=== PATIENT | male | born 1960 | race Caucasian/White ===

== ENCOUNTER 2019-05-04 21:15 | Emergency (ER) | payer BC, SELFPAY ==
--- NOTE | ~2019-05-04 | CT_ITS ---
EXAMINATION: CT abdomen pelvis w con DATE: 05/04/2019 22:33 INDICATION: Diverticulitis. TECHNIQUE: Computed tomography (CT) of the abdomen and pelvis was performed with 100 mL Omnipaque 350 intravenous contrast. Automated exposure control and iterative reconstruction technique were employe d. The dose-length product was 1309.41 mGy-cm. COMPARISON: None. FINDINGS: The visualized portions of the lung bases demonstrated mild atelectasis. No pleural effusio n. The heart size is normal. There are coronary artery calcifications. No pericardial effusion. The l iver and spleen are normal. There are gallstones in the gallbladder, which is normal in size. The morin creas, adrenal glands, and right kidney are normal. There is mild left hydronephrosis. There is a 9 m m stone in proximal left ureter. There is diverticulosis of the colon without evidence of diverticuli tis. The appendix is normal. There are no dilated loops of bowel. There are no pathologically enlarge d lymph nodes. There is no free intraperitoneal fluid. There is severe lower lumbar spondylosis. IMPRESSION: 1. 9 mm stone in proximal left ureter with mild left hydronephrosis. Reviewed, dictated and finalized at location A.
[2019-05-04 21:18] VITALS: BP 190/121; PULSE 94; RESP 100; TEMP 36.8; O2SAT 100
--- NOTE | 2019-05-04 21:22 | ED.ABDPAIN ---
HPI - Abdominal Pain General Chief Complaint: Abdominal Pain Stated Complaint: LLQ abd pain Time Seen by Provider: 05/04/19 21:20 Source: patient and RN notes reviewed Mode of arrival: ambulatory Limitations: no limitations History of Present Illness HPI narrative: A 59 y/o male presents to the ED with constant LLQ ABD pain beginning roughly 1 hour ago. He denies any N/V/D, constipation, or fevers. MD elicited complaint: abdominal pain Pertinent past history: none Onset (ago): hour(s) (1) Pain Consistency: constant Location: LLQ Associated symptoms: denies other symptoms Related Data Home Medications Medication Instructions Recorded Confirmed hydrochlorothiazide 05/04/19 metoprolol succinate PO 05/04/19 omeprazole 05/04/19 Allergies Allergy/AdvReac Type Severity Reaction Status Date / Time No Known Allergies Allergy Unverified 08/14/14 20:57 Review of Systems Review of Systems: All systems reviewed & are unremarkable except as noted in HPI and below Constitutional: Constitutional: Denies fever(s) Gastrointestinal: Gastrointestinal: Reports abdominal pain (LLQ), Denies constipation, Denies diarrhea, Denies nausea and Denies vomiting PMFSH Past Medical History Medical History (Updated 05/04/19 @ 23:05 by Kenn Bailey MD) GERD (gastroesophageal reflux disease) H/O: HTN (hypertension) Hypercholesteremia Surgical History Surgical History (Updated 05/04/19 @ 21:41 by Samy Ortiz) Surgical history unknown Social History Social History (Updated 05/04/19 @ 21:41 by Samy Ortiz) Smoking status: Former smoker Tobacco type: cigarettes Gender identity (if verbalized by the patient): Male Exam Narrative: Exam Narrative: General appearance: Well-developed, well-nourished Skin: Normal color Head: Normocephalic, nontraumatic Eyes: Clear conjunctiva ENT: Oropharynx normal, ears normal, nose normal Neck: Supple, nontender Chest and respiratory: Airway patent, no respiratory distress, no accessory muscle use Heart: Regular rate/rhythm Abdomen: Soft, slight tenderness left lower quadrant, no guarding or rebound r, no organomegaly, quiet bowel sounds Vascular: Normal peripheral pulses, normal capillary refill. Musculoskeletal: Normal range of motion, nontender back Neurologic: Alert and oriented ?3, [employer] is normal as tested, no gross motor deficit Course Course Emergency Course: Improving Vital Signs Vital signs: Vital Signs Temperature 36.8 C 05/04/19 21:18 Pulse Rate 94 05/04/19 21:18 Respiratory Rate 100 H 05/04/19 21:18 Blood Pressure 190/121 H 05/04/19 21:18 Pulse Oximetry 100 05/04/19 21:18 Temperature 36.8 C 05/04/19 21:18 Pulse Rate 94 05/04/19 21:18 Respiratory Rate 100 H 05/04/19 21:18 Blood Pressure 190/121 H 05/04/19 21:18 Pulse Oximetry 100 05/04/19 21:18 MDM - Abdominal Pain Differential Diagnosis Differential diagnosis: Likely abdominal pain, calculus of kidney, constipation, diverticulitis and other (Ischemic colitis) Lab Data Result diagrams: 05/04/19 21:52 05/04/19 21:52 Labs: Lab Results 05/04/19 05/04/19 05/04/19 Range/Units 21:52 21:52 21:52 WBC 11.5 H (4.5-10.0) K/mm3 RBC 4.08 L (4.6-6.20) M/mm3 Hgb 13.0 L (14.0-18.0) g/dL Hct 38.7 L (42.0-52.0) % MCV 94.9 (80-100) fl MCH 31.9 (26-34) pg MCHC 33.6 (32-36) g/dl RDW 13.4 (11.5-14.5) % Plt Count 267 (150-375) k/mm3 MPV 10.7 H (7.4-10.4) fl Immature Gran % (Auto) 0.4 (0-0.5) % Neut % (Auto) 71.1 (45.5-73.1) % Lymph % (Auto) 17.5 L (18.3-44.2) % [place] % (Auto) 8.4 (2.6-8.5) % Eos % (Auto) 2.1 (
[2019-05-04 21:59] LABS: Basophils Absolute Auto 0.1 K/mm3 (0.0-0.1); Basophils Percent Auto 0.5 % (0.2-1.2); Eosinophils Absolute Auto 0.2 K/mm3 (0-0.3); Eosinophils Percent Auto 2.1 % (0-4.4); Hematocrit 38.7 % (42.0-52.0); Immature Granulocyte Absolute 0.05 K/mm3 (0.00-0.031); Immature Granulocyte Percent A 0.4 % (0-0.5); Lymphocytes Absolute Auto 2.01 K/mm3 (0.9-3.2); Lymphocytes Percent Auto 17.5 % (18.3-44.2); Mean Corpuscular HGB Conc 33.6 g/dl (32-36); Mean Corpuscular Hemoglobin 31.9 pg (26-34); Mean Corpuscular Volume 94.9 fl (80-100); Mean Platelet Volume 10.7 fl (7.4-10.4); Monocytes Percent Auto 8.4 % (2.6-8.5); Neutrophils Absolute Auto 8.2 K/mm3 (1.3-6.7); Neutrophils Percent Auto 71.1 % (45.5-73.1); Platelet Count Result 267 k/mm3 (150-375); Red Blood Count 4.08 M/mm3 (4.6-6.20); Red Cell Distribution Width 13.4 % (11.5-14.5); White Blood Count 11.5 K/mm3 (4.5-10.0)
[2019-05-04] MEDS: ONDANSETRON INJ 4 MG/2 ML VIAL IV PUSH (22:01)
[2019-05-04] MEDS: SODIUM CHLORIDE 0.9% IV 1,000 ML 999 ML IV CONT (22:01)
[2019-05-04] MEDS: HYDROMORPHONE HCL 1 MG/ML INJ 0.5 MG IV PUSH (22:01)
[2019-05-04 22:10] LABS: Lactic Acid Reflex 2.4 mmol/L (0.7-2.1)
[2019-05-04 22:11] LABS: Alanine Aminotransferase 26 U/L (4-50); Albumin Level 4.4 g/dL (3.5-5.1); Alkaline Phosphatase 69 U/L (38-126); Aspartate Amino Transferase 42 U/L (17-59); Bilirubin,Total 0.7 mg/dL (0.2-1.3); Blood Urea Nitrogen 17 mg/dL (9-20); Calcium 9.1 mg/dL (8.4-10.2); Carbon Dioxide 25 mmol/L (22-30); Chloride 106 mmol/L (98-107); Estimated CRCL calculation 65 ml/min; Estimated Glomerular Filt Rate 52; Glucose 131 mg/dL (75-110); Potassium 4.2 mmol/L (3.4-5.0); Sodium 139 mmol/L (137-145)
[2019-05-04 22:21] LABS: Add Urine Microscopic? YES; Appearance Urine Clear (Clear); Bilirubin Urine Negative (Negative); Blood Urine 2+ (Negative); Color Urine Yellow (Yellow); Glucose Urine UA Negative (Negative); Ketones Urine Negative (Negative); Leukocyte Esterase Ur Negative LEU/UL (Negative); Mucus Urine Rare /lpf; Nitrate Urine Negative (Negative); Protein Urine Negative (Negative); RBC Urine >75 /hpf (0-2); Specific Grav Ur 1.017 (1.001-1.035); Urobilinogen Urine Negative mg/dL (<2.0); WBC Urine 0-3 /hpf
--- NOTE | 2019-05-04 22:26 | PC.NURSE ---
Patient to radiology
[2019-05-04 22:31] VITALS: TEMP 36.8
[2019-05-04 23:00] VITALS: BP 176/130; PULSE 81; RESP 14; O2SAT 99
[2019-05-04] MEDS: KETOROLAC 30 MG/ML VIAL (*BKC) IV PUSH (23:14)
--- NOTE | 2019-05-04 23:20 | PC.NURSE ---
Per EDP Lynn, patient to be discharged in approximately 1 hour to allow Dilaudid to subside.
[2019-05-04 23:44] VITALS: TEMP 36.8
[2019-05-05 00:14] VITALS: BP 171/102; PULSE 75; RESP 14; TEMP 36.7; O2SAT 100
[2019-05-05 00:56] LABS: Reflex Lactic Acid Yes or No Add Lactic
== END 2019-05-05 00:20 | disposition home or self-care (01) ==
PROVIDERS: Emergency Provider Emergency Medicine; PCP Family Medicine
DX: N13.2 Hydronephrosis with renal and ureteral calculous obstruction (principal); K21.9 Gastro-esophageal reflux disease without esophagitis; E78.00 Pure hypercholesterolemia, unspecified; Z87.891 Personal history of nicotine dependence
CPT/HCPCS: 36415; 74177; 80053; 81001; 83605; 85025; 96360; 96374; 96375; 99284; J1170; J1885; J2405; J7030; Q9967

== ENCOUNTER 2020-06-17 20:43 | Emergency (ER) | payer BC, SELFPAY ==
--- NOTE | ~2020-06-17 | XR_ITS ---
XR chest 2V 06/17/2020 21:48 Indication: Shortness of breath. Hypertension. COPD. Procedure: PA and lateral views of the chest Comparison: No prior studies for comparison. Findings: Heart size normal. No focal air space disease, pulmonary edema, pleural effusion or suspect ed pneumothorax. No acute osseous abnormality. Impression: 1: No acute cardiopulmonary disease. Reviewed, dictated and finalized at location A. Impression: 1: No acute cardiopulmonary disease.
[2020-06-17 20:40] VITALS: PULSE 82; RESP 15; TEMP 36.6; O2SAT 99
--- NOTE | 2020-06-17 20:59 | ECG_ITS ---
Measurements Intervals [place] Rate: 82 P: 67 PA: 157 QRS: 50 QRSD: 95 T: 85 QT: 306 QTc: 358 Interpretive Statements SINUS RHYTHM NONSPECIFIC T-WAVE ABNORMALITY- ANT/INF LEADS BASELINE ARTIFACT- I, II, III, AVR, AVL, V1-V2 BORDERLINE ECG Electronically Signed On 06-18-2020 7:53:11 CDT by Eric Larry D.O.
--- NOTE | 2020-06-17 21:00 | ED.SOB ---
HPI - SOB/Dyspnea General Chief Complaint: Shortness of Breath/Dyspnea Stated Complaint: cp, sob Time Seen by Provider: 06/17/20 20:46 Source: patient and RN notes reviewed Mode of arrival: EMS Limitations: no limitations History of Present Illness HPI Narrative: This is a 60 year old male with history of COPD who presents for evaluation of shortness of breath. He states he was walking out of bathroom when he developed sudden onset of shortness of breath. He states he has had similar symptoms in the past. He denies worsening cough or chest pain with this episode. He feels better now. He does states he has been having intermittent right chest pain with coughing for 1 week. He thinks it may just be a pulled muscle. He denies fever, chills, nausea, vomiting, leg swelling or history of DVT. He did not have his rescue inhaler. MD elicited complaint: shortness of breath Related Data Home Medications Medication Instructions Recorded Confirmed hydrochlorothiazide 05/04/19 metoprolol succinate PO 05/04/19 omeprazole 05/04/19 Allergies Allergy/AdvReac Type Severity Reaction Status Date / Time No Known Allergies Allergy Unverified 08/14/14 20:57 Review of Systems Review of Systems: All systems reviewed & are unremarkable except as noted in HPI and below PMFSH Past Medical History Medical History (Updated 06/18/20 @ 02:12 by Fernanda Jacobson MD) COPD (chronic obstructive pulmonary disease) GERD (gastroesophageal reflux disease) H/O: HTN (hypertension) Hypercholesteremia Surgical History Surgical History (Updated 05/04/19 @ 21:41 by Samy Oritz) Surgical history unknown Social History Social History (Updated 05/04/19 @ 21:41 by Samy Ortiz) Smoking status: Former smoker Tobacco type: cigarettes Gender identity (if verbalized by the patient): Male Exam Const: General: no acute distress and alert Orientation/consciousness: patient oriented x3 Eyes: EOM: EOMs intact bilaterally Resp: Effort & Inspection: normal respiratory effort and no retractions Auscultation: clear to auscultation bilaterally Other: talking in complete full sentences Cardio: Rate: regular rate Rhythm: regular rhythm Heart sounds: no murmurs GI: GI Palp: Yes Soft to palpation, No Tenderness to palpation present (GI) and No Guarding due to palpation present (GI) Auscultation: normal bowel sounds Skin: General skin exam: normal color Rashes: no rashes Neuro: General: patient oriented x3, moves all extremities and CN's II-XI intact bilaterally Extrem: General: normal to inspection Psych: Mental Status: mental status grossly normal Affect: normal affect Course Reevaluation(s) Reevaluation #1: Patient states he feels better. He reports history of hypokalema but he is out of his potassium pills. I discussed that he will need to talk to his PCP about possible discontinuing his HCTZ. Date: 06/18/20 Time: 02:09 Vital Signs Vital signs: Vital Signs Temperature 97.8 F 06/17/20 20:40 Pulse Rate 82 06/17/20 20:40 Respiratory Rate 15 06/17/20 20:40 Pulse Oximetry 99 06/17/20 20:40 Temperature 97.8 F 06/17/20 20:40 Pulse Rate 77 06/18/20 02:30 Respiratory Rate 16 06/18/20 02:30 Blood Pressure 121/80 06/18/20 02:30 Pulse Oximetry 100 06/18/20 02:30 MDM - SOB/Dyspnea Lab Data Attestation: I reviewed the patient's lab results. Result diagrams: 06/17/20 21:12 06/18/20 01:47 Labs: Lab Results 06/17/20 06/17/20 06/17/20 Range/Units 21:12 21:12 21:12 WBC 7.3 (4.5-10.0) K/mm3 RBC 3.50 L (4.6-6.20) M/mm3 Hgb 11.8 L (14.0-18.0) g/dL Hct 32.3 L (42.0-52.0) % MCV 92.3 (80-100) fl MCH 33.7 (26-34) pg MCHC 36.5 H (32-36) g/dl RDW 13.9 (11.5-14.5) % Plt Count 250 (150-375) k/mm3 MPV 9.7 (7.4-10.4) fl Immature Gran % (Auto) 1.0 H (0-0.5) % Neut % (Auto) 48.2 (45.5-73.1) % Lymph % (Auto
[2020-06-17 21:28] LABS: Basophils Absolute Auto 0.1 K/mm3 (0.0-0.1); Basophils Percent Auto 0.7 % (0.2-1.2); Eosinophils Absolute Auto 0.2 K/mm3 (0-0.3); Eosinophils Percent Auto 3.3 % (0-4.4); Hematocrit 32.3 % (42.0-52.0); Hemoglobin 11.8 g/dL (14.0-18.0); Immature Granulocyte Absolute 0.07 K/mm3 (0.00-0.031); Lymphocytes Absolute Auto 2.72 K/mm3 (0.9-3.2); Lymphocytes Percent Auto 37.2 % (18.3-44.2); Mean Corpuscular HGB Conc 36.5 g/dl (32-36); Mean Corpuscular Hemoglobin 33.7 pg (26-34); Mean Corpuscular Volume 92.3 fl (80-100); Mean Platelet Volume 9.7 fl (7.4-10.4); Monocytes Absolute Auto 0.7 K/mm3 (0.1-0.6); Monocytes Percent Auto 9.6 % (2.6-8.5); Neutrophils Absolute Auto 3.5 K/mm3 (1.3-6.7); Neutrophils Percent Auto 48.2 % (45.5-73.1); Platelet Count Result 250 k/mm3 (150-375); Red Cell Distribution Width 13.9 % (11.5-14.5); White Blood Count 7.3 K/mm3 (4.5-10.0)
[2020-06-17 21:37] LABS: Prothrombin Time 13.9 Seconds (11.1-14.7)
[2020-06-17 21:38] LABS: Partial Thromboplastin Time 28.6 SECONDS (22.3-36.8)
[2020-06-17 21:43] LABS: Alanine Aminotransferase 15 U/L (4-50); Albumin Level 3.9 g/dL (3.5-5.1); Alkaline Phosphatase 58 U/L (38-126); Anion Gap 9 mmol/L (8-16); Aspartate Amino Transferase 29 U/L (17-59); Bilirubin,Total 0.4 mg/dL (0.2-1.3); Blood Urea Nitrogen 27 mg/dL (9-20); Calcium 9.5 mg/dL (8.4-10.2); Carbon Dioxide 24 mmol/L (22-30); Chloride 106 mmol/L (98-107); D Dimer 0.27 ug/mL (<0.48); Estimated CRCL calculation 56 ml/min; Estimated Glomerular Filt Rate 44; Glucose 171 mg/dL (75-110); Potassium 2.7 mmol/L (3.4-5.0); Sodium 139 mmol/L (137-145)
[2020-06-17 21:52] LABS: NT Pro B Type Natriuretic Pept 237 pg/mL (5-100); Troponin I 0.018 ng/mL (0.000-0.034)
[2020-06-17] MEDS: POTASSIUM CHLORIDE 20 MEQ TABLET 40 MEQ PO (21:59)
[2020-06-17] MEDS: LACTATED RINGERS 1,000 ML 999 ML IV CONT ×2 (22:00→23:20)
[2020-06-17 22:07] VITALS: BP 115/61; PULSE 91; RESP 17; O2SAT 100
[2020-06-17 23:23] VITALS: BP 121/78; PULSE 80; RESP 20; O2SAT 100
[2020-06-17 23:29] LABS: HCO3 ABG 23.4 mEq/l (22.0-26.0); PO2 ABG 89.2 mmHg (80.0-100.0); pH ABG 7.455 (7.350-7.450)
[2020-06-17 23:30] LABS: Alveolar/Arterial O2 Gradient 19.8 mmHg; Fractional Inspired Oxygen 21 %; Oxygen Content ABG 16.9 %vol (16.0-22.0); Oxygen Saturation ABG 97.2 % (95.0-100.0); Total Hemoglobin 12.5 g/dL (12.0-18.0)
[2020-06-17 23:31] LABS: Device ROOM AIR; Modified Allen's Test Pass; Site Drawn RIGHT RADIAL
[2020-06-18 02:02] LABS: Potassium 3.3 mmol/L (3.4-5.0)
[2020-06-18 02:30] VITALS: BP 121/80; PULSE 77; RESP 16; O2SAT 100
== END 2020-06-18 02:30 | disposition home or self-care (01) ==
PROVIDERS: Emergency Provider General Practice; PCP Family Medicine
DX: N17.9 Acute kidney failure, unspecified (principal); E87.6 Hypokalemia; J44.9 Chronic obstructive pulmonary disease, unspecified; K21.9 Gastro-esophageal reflux disease without esophagitis; I10 Essential (primary) hypertension; E78.00 Pure hypercholesterolemia, unspecified; R94.31 Abnormal electrocardiogram [ECG] [EKG]
CPT/HCPCS: 36415; 36600; 71046; 80053; 82805; 83880; 84132; 84484; 85025; 85380; 85610; 85730; 93005; 96361; 96365; 96366; 99284; A9270; J3480; J7120

== ENCOUNTER 2020-12-19 03:08 | Day surgery (SDC) | payer BC, SELFPAY ==
[2020-12-15 10:34] VITALS: BMI 29.2
--- NOTE | 2020-12-15 10:51 | PC.NURSE ---
Report to the Outpatient Waiting Room, entrance under the green pavilion located off [facility], at time 0930 on date 12/19/20. OR Time: 1130 - You and your visitor will be asked a series of questions to screen for COVID 19 for your protection. - A mask is required within the hospital. - Only one visitor is allowed at this time. Patient visitors will be guided where to wait when not with patient. Preoperative COVID Testing Requirements: No COVID Test needed if: (proof is required; if not received patient will have Rapid Test prior to entry) - Patient has received COVID Vaccine at least 14 days prior to procedure date or - Patient has positive COVID test result within last 90 days of surgery date. COVID Test needed if above criteria is not met If not COVID vaccinated a COVID test must be conducted within 72 hours of surgery and patient is asked to isolate self from time of testing until procedure. You will go to the [facility] for your COVID testing. The [facility] site is located at the corner of [address] [facility]. You will only be called if COVID results are positive and your surgeon may reschedule your elective surgery date. Patients may have clear liquids (water, carbonated beverages, clear teas, apple juice) until 3 hours prior to surgery with a maximum of 20 ounces. - No food from midnight until time of surgery - Infants may have breast milk until 4 hours before surgery, infant formula 6 hours prior to surgery. - Children will be allowed to drink immediately following surgery. If applicable, please bring a bottle or sippy cup to assist with drinking. Juice, water, soda, and popsicles are readily available. For infants on formula, please bring formula the day of surgery. Pacifiers are allowed. Take the following medications with a SIP of water the morning of surgery: METOPROLOL Medications to discontinue per physician: VITAMINS/SUPPLEMENTS Date to take last dose: 3 DAYS PRE-OP Please no make-up, nail algerian, hairspray, perfume, deodorant, or body powder the day of surgery. No jewelry (including any body piercings) or valuables the day of surgery, leave them at home. Please take a shower or bath the night before, or the morning of, surgery with an antibacterial soap. Wear comfortable, loose fitting clothing. Children are encouraged to wear pajamas. - Jewelry must be removed prior to entering the operating room. Rings and piercings that are not removed may be cut off. - The hospital will not accept responsibility for valuables. - Please leave all valuables, including medications, at home the day of surgery. If you are going home after surgery, a licensed pick up truck driver must drive you home. - NO public transportation without another adult. - We recommend that an adult stay with you for 24 hours following discharge. - We also recommend that you do not drive, make important decision, drink alcoholic beverages, or take any drugs that were not prescribed by your health care provider for at least 24 hours after your discharge time. For Pediatric surgeries, we recommend two adults accompany the child home (only one inside the building at this time). Follow any additional instructions given to you from your surgeon. Telephone instructions given to RIDDHI MCCARTNEY and asked if any additional questions and then verbalized understanding. Patient advised to call surgeon office or pre surgery nurse liaison [phone] if any additional questions.
[2020-12-19] VITALS (9 sets, daily range): BP systolic 132–158; BP diastolic 88–101; PULSE 67–78; RESP 12–18; TEMP 36.1–36.4; O2SAT 100
[2020-12-19] MEDS: LACTATED RINGERS 1,000 ML 30 ML IV CONT ×2 (09:19→11:41)
[2020-12-19 09:37] LABS: Anion Gap 12 mmol/L (8-16); Blood Urea Nitrogen 17 mg/dL (9-20); Calcium 9.2 mg/dL (8.4-10.2); Carbon Dioxide 20 mmol/L (22-30); Chloride 108 mmol/L (98-107); Estimated CRCL calculation 70 ml/min; Estimated Glomerular Filt Rate > 60; Glucose 154 mg/dL (65-110); Potassium 3.5 mmol/L (3.4-5.0); Sodium 140 mmol/L (137-145)
[2020-12-19] MEDS: ACETAMINOPHEN 500 MG TABLET 1000 MG PO (09:39)
--- NOTE | 2020-12-19 09:40 | WPDANESEPPF ---
Anes - Initial Pre Proc Eval Procedure: Operation Date: 12/19/20 11:30 Proposed Procedures p Cystoscopy - Kobe Santamaria MD s Holmium Laser Lithotripsy Of Bladder Stone - Kobe Santamaria MD Date/Time: 12/19/20 09:40 Surgeon: Kobe Santamaria MD Pre Op Diagnosis: Bladder Stone Patient Data Age: 60 Gender: M Height: 1.83 m Weight: 98.8 kg Last Vital Signs Temp 36.1 C L 12/19/20 08:48 Pulse 74 12/19/20 08:48 Resp 18 12/19/20 08:48 BP 150/100 H 12/19/20 08:48 Pulse Ox 100 12/19/20 08:48 Allergies Allergy/AdvReac Type Severity Reaction Status Date / Time No Known Allergies Allergy Unverified 12/19/20 09:02 Home Medications Medication Instructions Recorded Confirmed Type metoprolol succinate 100 mg PO DAILY 05/04/19 12/19/20 History omeprazole 40 mg PO DAILY 05/04/19 12/19/20 History fenofibrate 54 mg PO DAILY 12/15/20 12/19/20 History losartan-hydrochlorothiazide 1 tablet PO DAILY 12/15/20 12/19/20 History potassium chloride 20 meq PO DAILY 12/15/20 12/19/20 History pravastatin 80 mg PO DAILY 12/15/20 12/19/20 History Laboratory Tests 12/19/20 09:18 Sodium 140 mmol/L mmol/L (137-145) Potassium 3.5 mmol/L mmol/L (3.4-5.0) Chloride 108 mmol/L H mmol/L (98-107) Carbon Dioxide 20 mmol/L L mmol/L (22-30) Anion Gap 12 mmol/L mmol/L (8-16) BUN 17 mg/dL D mg/dL (9-20) Creatinine 1.10 mg/dL mg/dL (0.7-1.3) Estim Creat Clear Calc 70 ml/min ml/min Estimated GFR > 60 (59 - ) Glucose 154 mg/dL H mg/dL (65-110) Calcium 9.2 mg/dL mg/dL (8.4-10.2) Patient hx anesthesia problems: none Family hx anesthesia problems: none Results Review: All pre-operative results and documents have been reviewed as part of the pre-operative evaluation. [facility] Past Medical History Medical History (Updated 06/19/20 @ 00:00 by Erasmo Gan) COPD (chronic obstructive pulmonary disease) GERD (gastroesophageal reflux disease) H/O: HTN (hypertension) Hypercholesteremia Surgical History Surgical History (Updated 12/19/20 @ 09:44 by Anderson Jacobs MD) H/O sinus surgery Hx of tonsillectomy Social History Social History (Updated 05/04/19 @ 21:41 by Samy Ortiz) Smoking packs per day: 1.5 Smoking cigarettes per day: 30.0 Years smoked: 27 Smoking pack-years: 40.50 Smoking status: Former smoker Tobacco type: cigarettes Smoking end date: 02/11/04 Alcohol intake: current Drinks per week: 6 Substance use: never Substance use type: does not use Living arrangements: alone Gender identity (if verbalized by the patient): Male Spiritual care concerns: No Anes - Eval Final PreProcedure Day of Procedure 12/19/20 09:40 Patient weight: overweight Heart: regular rate and rhythm Lungs: clear to auscultation Airway: Mallampati scale class II Neurological: alert and oriented Last oral intake: >/= 8 hours ASA classification: III Emergent: no Anesthetic plan: proceed Anesthesia type and monitoring: general LMA and standard monitoring Results Review: All pre-operative results and documents have been reviewed as part of the pre-operative evaluation. Informed Consent: The patient's anesthetic plan and its attendant risks and benefits were discussed with the patient/family/POA. Questions were solicited and answers provided to the satisfaction of the patient/family/POA.
--- NOTE | 2020-12-19 10:38 | WPDHPUPDATE1 ---
History and Physical Update Update Date/Time: 12/19/20 10:38 History and Physical has been reviewed, including an updated exam of the patient. There are NO changes in the patient's condition. Risks, benefits, and alternatives have been discussed and questions answered. Patient agrees to proceed with procedure. Proceed with cysto and holmium laser of bladder calculus
[2020-12-19] MEDS: ceFAZolin 2 GM/D5W 50 ML 2 GM/50 ML BAG IVPB (10:55)
[2020-12-19] MEDS: LIDOCAINE HCL 2% GEL UROJET 10 ML PKG MUCOUS MEM (11:07)
--- NOTE | 2020-12-19 11:35 | W.PM.PROC2 ---
Procedure Note - Detailed Date of Procedure 12/19/20 Pre-op Diagnosis Bladder Stone Post-op Diagnosis same Procedure Performed Cystoscopy with holmium laser of large bladder stone 2.5-3 cm, fulguration of bladder neck with extraction of stone Surgeon Kobe Santamaria MD Anesthesia general Description of Procedure Patient is taken to the operative suite correctly identified. Once anesthesia was obtained was placed in dorsal lithotomy position and prepped and draped usual sterile fashion. Twenty-two Upper Sorbian scope was inserted the bladder. He has some mild lateral lobe hypertrophy. Upon entering the bladder the bladder was inspected in its entirety. There were no tumors noted. He has a large stone measuring 2.5-3 cm. Using a 273 micron fiber we lasered the stone. Pieces were obtained and sent for analysis. Was noted that he had a little oozing from the 6 o'clock position at the bladder neck area. We thus used a Bugbee electrode to fulgurate the area. There was good hemostasis at termination procedure. 2% viscous lidocaine was inserted urethra patient is taken recovery stable condition. He will follow-up in 2-3 weeks time. Drains No Packing No Pathology yes Complications No immediate complications Condition stable Disposition PACU
== END 2020-12-19 13:21 | disposition home or self-care (01) ==
PROVIDERS: Anesthesiology; PCP Family Medicine; Visit Provider Urology
PROC: 0TCB8ZZ Extirpation of Matter from Bladder, Via Natural or Artificial Opening Endoscopic (ICD-10-PCS; CPT 52352; principal; 2020-12-19 11:30)
PROC: (CPT 52318; 2020-12-19 11:30)
DX: N21.0 Calculus in bladder (principal); J44.9 Chronic obstructive pulmonary disease, unspecified; I10 Essential (primary) hypertension; E78.00 Pure hypercholesterolemia, unspecified; K21.9 Gastro-esophageal reflux disease without esophagitis; Z87.891 Personal history of nicotine dependence
CPT/HCPCS: 52318; 36415; 80048; 82365; 88300; A9270; J0690; J2250; J2270; J2405; J2704; J7120

== ENCOUNTER 2021-05-03 09:11 | Outpatient (CLI) | payer BC, SELFPAY ==
--- NOTE | ~2021-05-03 | XR_ITS ---
EXAMINATION: XR abdomen/kub 1V INDICATION: Calcium kidney stone TECHNIQUE: Supine views of the abdomen were obtained on 2 radiographs. COMPARISON: CT, 05/04/2019 FINDINGS: There is a 3 mm calcification of the right pelvis. The bowel gas pattern is normal. The vis ualized lung bases are clear. There is severe lower lumbar spondylosis. IMPRESSION: 1. 3 mm calcification of the right pelvis which could reflect right distal ureteral stone versus phle bolith. Reviewed, dictated and finalized at location B. IMPRESSION: 1. 3 mm calcification of the right pelvis which could reflect right distal uret eral stone versus phlebolith.
== END 2021-05-03 09:12 | disposition home or self-care (01) ==
LOC: ANHIMG 09:15
PROVIDERS: PCP Family Medicine; Visit Provider Urology
DX: N20.0 Calculus of kidney (principal)
CPT/HCPCS: 74018

== ENCOUNTER 2021-05-16 09:53 | Outpatient (CLI) | payer BC, SELFPAY ==
[2021-05-16 10:39] LABS: Anion Gap 11 mmol/L (8-16); Blood Urea Nitrogen 23 mg/dL (9-20); Calcium 8.6 mg/dL (8.4-10.2); Carbon Dioxide 19 mmol/L (22-30); Chloride 104 mmol/L (98-107); Estimated Glomerular Filt Rate > 60; Glucose 150 mg/dL (65-110); Potassium 3.8 mmol/L (3.4-5.0); Sodium 134 mmol/L (137-145)
== END 2021-05-16 09:54 | disposition home or self-care (01) ==
LOC: ANHSURGERY 09:57
PROVIDERS: Anesthesiology; PCP Family Medicine; Visit Provider Urology
DX: Z01.818 Encounter for other preprocedural examination (principal); N21.0 Calculus in bladder; Z79.899 Other long term (current) drug therapy
CPT/HCPCS: 36415; 80048; 87086

== ENCOUNTER 2021-05-22 00:33 | Day surgery (SDC) | payer BC, SELFPAY ==
[2021-05-15 10:26] VITALS: BMI 30.4
--- NOTE | 2021-05-15 10:38 | PC.NURSE ---
Report to the Outpatient Waiting Room, entrance under the green pavilion located off [facility], at time 6:15 on date 05/22/21. OR Time: 8:15. - You and your visitor will be asked a series of questions to screen for COVID 19 for your protection. - A mask is required within the hospital. One visitor will be allowed to accompany the patient into the hospital. Patients visitor will be instructed to remain with patient at all times or leave the building. We will allow the visitor to come back to the postoperative area when patient is ready. Preoperative COVID Testing Requirements: No COVID Test needed if: (proof is required; if not received patient will have Rapid Test prior to entry) - Patient has received COVID Vaccine at least 14 days prior to procedure date or - Patient has positive COVID test result within last 90 days of surgery date. COVID Test needed if above criteria is not met Patients may have clear liquids (water, carbonated beverages, clear teas, apple juice) until 3 hours prior to surgery (5:15) with a maximum of 20 ounces. - No food from midnight until time of surgery Take the following medications with a SIP of water the morning of surgery: ALLOPURINOL, AMLODIPINE, METOPROLOL Medications to discontinue per physician: VITAMINS/SUPPLEMENTS Date to take last dose: 05/18/21 Please no make-up, nail persian, hairspray, perfume, deodorant, or body powder the day of surgery. No jewelry (including any body piercings) or valuables the day of surgery, leave them at home. Please take a shower or bath the night before, or the morning of, surgery with an antibacterial soap. Wear comfortable, loose fitting clothing. - Jewelry must be removed prior to entering the operating room. Rings and piercings that are not removed may be cut off. - The hospital will not accept responsibility for valuables. - Please leave all valuables, including medications, at home the day of surgery. If you are going home after surgery, a licensed parcel post truck driver must drive you home. - NO public transportation without another adult. - We recommend that an adult stay with you for 24 hours following discharge. - We also recommend that you do not drive, make important decision, drink alcoholic beverages, or take any drugs that were not prescribed by your health care provider for at least 24 hours after your discharge time. Follow any additional instructions given to you from your surgeon. Telephone instructions given to RIDDHI MCCARTNEY and asked if any additional questions and then verbalized understanding. Patient advised to call surgeon office or pre surgery nurse liaison [phone] if any additional questions.
[2021-05-22 06:07] VITALS: BP 144/84; PULSE 81; RESP 16; TEMP 36.4; O2SAT 98
--- NOTE | 2021-05-22 07:05 | WPDANESEPPF ---
Anes - Initial Pre Proc Eval Procedure: Operation Date: 05/22/21 08:15 Proposed Procedures p Cystoscopy, Bladder Stones, - Kobe Santamaria MD s Holmium Laser - Kobe Santamaria MD Date/Time: 05/22/21 07:05 Surgeon: Kobe Santamaria MD Pre Op Diagnosis: bladder stones Patient Data Age: 61 Gender: M Height: 1.8 m Weight: 100.5 kg Allergies Allergy/AdvReac Type Severity Reaction Status Date / Time No Known Allergies Allergy Unverified 05/22/21 06:56 Home Medications Medication Instructions Recorded Confirmed Type metoprolol succinate 100 mg PO DAILY 05/04/19 05/22/21 History omeprazole 40 mg PO DAILY 05/04/19 05/22/21 History fenofibrate 54 mg PO DAILY 12/15/20 05/22/21 History potassium chloride 20 meq PO DAILY 12/15/20 05/22/21 History allopurinol 300 mg PO DAILY 05/15/21 05/22/21 History amlodipine 2.5 mg PO DAILY 05/15/21 05/22/21 History cyanocobalamin (vitamin B-12) 1,000 mcg IM WEEKLY 05/15/21 05/22/21 History rosuvastatin 20 mg PO DAILY 05/15/21 05/15/21 History valsartan-hydrochlorothiazide 1 tablet PO DAILY 05/22/21 05/22/21 History Patient hx anesthesia problems: none Family hx anesthesia problems: none Results Review: All pre-operative results and documents have been reviewed as part of the pre-operative evaluation. [facility] Past Medical History Medical History COPD (chronic obstructive pulmonary disease) GERD (gastroesophageal reflux disease) H/O: HTN (hypertension) Hypercholesteremia Surgical History Surgical History H/O sinus surgery Hx of tonsillectomy Social History Social History Smoking packs per day: 1.75 Smoking cigarettes per day: 35.0 Years smoked: 28 Smoking pack-years: 49.00 Smoking status: Former smoker Tobacco type: cigarettes Smoking end date: 02/10/07 Alcohol intake: current Drinks per week: 6 Substance use: never Substance use type: does not use Living arrangements: alone Gender identity (if verbalized by the patient): Male Spiritual care concerns: No Anes - Eval Final PreProcedure Day of Procedure 05/22/21 07:05 Patient weight: obese Heart: regular rate and rhythm Lungs: clear to auscultation Airway: Mallampati scale class II Neurological: alert and oriented Last oral intake: >/= 8 hours ASA classification: III Emergent: no Anesthetic plan: proceed Anesthesia type and monitoring: general LMA and standard monitoring Results Review: All pre-operative results and documents have been reviewed as part of the pre-operative evaluation. Informed Consent: The patient's anesthetic plan and its attendant risks and benefits were discussed with the patient/family/POA. Questions were solicited and answers provided to the satisfaction of the patient/family/POA.
[2021-05-22] MEDS: LACTATED RINGERS 1,000 ML 30 ML IV CONT (07:13)
--- NOTE | 2021-05-22 07:32 | WPDHPUPDATE1 ---
History and Physical Update Update Date/Time: 05/22/21 07:32 History and Physical has been reviewed, including an updated exam of the patient. There are NO changes in the patient's condition. Risks, benefits, and alternatives have been discussed and questions answered. Patient agrees to proceed with procedure.
[2021-05-22] MEDS: ceFAZolin 2 GM/D5W 50 ML 2 GM/50 ML BAG IVPB (08:23)
[2021-05-22] MEDS: LIDOCAINE HCL 2% GEL UROJET 10 ML PKG MUCOUS MEM (08:40)
--- NOTE | 2021-05-22 08:59 | P.OP_ITS ---
Procedure Note - Detailed Date of Procedure 05/22/21 Pre-op Diagnosis bladder stones x3 1.5 cm each Post-op Diagnosis Same Procedure Performed Cysto with holmium laser of bladder calculi and extraction Surgeon Kobe Santamaria MD Anesthesia General Description of Procedure Patient is taken to the operative suite correctly identified. Once anesthesia was obtained he was placed in dorsal lithotomy position and prepped and draped usual sterile fashion. Twenty-two Palestinian scope inserted the bladder no tumors noted. He has 3 large stones present in each measuring at least 1.5 cm. Using a 365 micron fiber we went ahead and fragmented the stones into multiple pieces. Largest pieces were sent for analysis. Reinspection of bladder revealed no residual stones. 2% viscous lidocaine was inserted into the urethra patient is taken recovery room stable condition. He will follow-up in 2-4 weeks time. Estimated Blood Loss 0 Drains No Packing No Pathology Yes Complications No immediate complications Condition Stable Disposition PACU
[2021-05-22 09:04] VITALS: BP 116/77; PULSE 75; RESP 13; TEMP 36.4; O2SAT 100
[2021-05-22 09:15] VITALS: BP 130/93; PULSE 76; RESP 14; O2SAT 100
[2021-05-22 09:28] VITALS: BP 120/79; PULSE 72; RESP 16; O2SAT 100
[2021-05-22 09:31] VITALS: BP 141/87; PULSE 68; RESP 16
[2021-05-22 09:48] VITALS: BP 149/78; PULSE 70; RESP 16
== END 2021-05-22 09:58 | disposition home or self-care (01) ==
PROVIDERS: PCP Family Medicine; Visit Provider Urology
PROC: 0TCB8ZZ Extirpation of Matter from Bladder, Via Natural or Artificial Opening Endoscopic (ICD-10-PCS; CPT 52352; principal; 2021-05-22 08:15)
PROC: (CPT 52317; 2021-05-22 08:15)
DX: N21.0 Calculus in bladder (principal); J44.9 Chronic obstructive pulmonary disease, unspecified; I10 Essential (primary) hypertension; K21.9 Gastro-esophageal reflux disease without esophagitis; E78.00 Pure hypercholesterolemia, unspecified; Z87.891 Personal history of nicotine dependence; E66.9 Obesity, unspecified; Z68.30 Body mass index [BMI] 30.0-30.9, adult
CPT/HCPCS: 52317; 82365; 88300; A9270; J0690; J2704; J3010; J7120